=== PATIENT | male | born 1980 | race Caucasian/White ===

== ENCOUNTER 2017-08-10 10:36 | Emergency (ER) | payer OTHER ==
[~2017-08-10] VITALS: Ht 185.4 cm; Wt 81.7 kg
[~2017-08-10 10:36] MED LIST: ALBIPROI INH; DOXY100 PO; HYDACE5 PO; IBUP600 PO; IBUP800 PO; LOPE2C PO; MARIJUANA; NAPR500 PO; NAPR550 PO; OXYACE5T PO; PENVK500 PO; PROACE100 PO; PROC10 PO; PROM25 PO; RXHYDACE PO; RXNAPNA550 PO; RXPENVK250 PO; RXTRAM50 PO; SULTRIDS PO; TRAM50 PO; Veetids 500500 MG PO
[2017-08-10] MEDS ORDERED: Bactrim Ds Tab1 EACH PO (12:12)
[2017-08-10] MEDS ORDERED: IBUP800 PO (12:12)
[2017-08-10] MEDS ORDERED: CEPH500 PO (12:12)
== END 2017-08-10 12:26 | disposition home or self-care (01) ==
LOC: ER 10:36
DX: L02.11 Cutaneous abscess of neck (principal); L03.221 Cellulitis of neck; F17.210 Nicotine dependence, cigarettes, uncomplicated; Z88.5 Allergy status to narcotic agent
CPT/HCPCS: 99282

== ENCOUNTER 2017-08-14 01:59 | Emergency (ER) | payer OTHER ==
[~2017-08-14] VITALS: Ht 185.4 cm; Wt 83.9 kg
[~2017-08-14 01:59] MED LIST changes: +Bactrim Ds Tab1 EACH PO; +CEPH500 PO
[2017-08-14] MEDS ORDERED: Bactrim Ds Tab1 EACH PO (02:38)
[2017-08-14] MEDS ORDERED: CEPH500 PO (02:38)
[2017-08-14] MEDS ORDERED: IBUP800 PO (02:38)
== END 2017-08-14 02:56 | disposition home or self-care (01) ==
LOC: ER 01:59
DX: L02.11 Cutaneous abscess of neck (principal); F17.210 Nicotine dependence, cigarettes, uncomplicated; Z88.5 Allergy status to narcotic agent; Z79.1 Long term (current) use of non-steroidal anti-inflammatories (NSAID)
CPT/HCPCS: 10060; 99283

== ENCOUNTER 2017-08-14 19:52 | Observation (INO) | payer OTHER ==
[~2017-08-14] VITALS: Ht 185.4 cm; Wt 88.5 kg
[2017-08-14 22:52] LABS: BASOPHILS ABSOLUTE AUTO 0.03 K/mm3 (0.00-0.23); BASOPHILS PERCENT AUTO 0 % (0-2); EOSINOPHILS ABSOLUTE AUTO 0.12 K/mm3 (0.00-0.68); EOSINOPHILS PERCENT AUTO 2 % (0-6); Hematocrit 33.6 % (37.0-53.0); Hemoglobin 11.2 g/dL (13.5-17.5); IMMATURE GRAN ABSOLUTE AUTO 0.01 K/mm3 (0.00-0.10); IMMATURE GRAN PERCENT AUTO 0 % (0-1); LYMPHOCYTES ABSOLUTE AUTO 1.07 K/mm3 (0.84-5.20); LYMPHOCYTES PERCENT AUTO 13 % (21-46); MONOCYTES ABSOLUTE AUTO 0.56 K/mm3 (0.16-1.47); MONOCYTES PERCENT AUTO 7 % (4-13); Mean Corpuscular HGB 29.7 pg (26.0-34.0); Mean Corpuscular HGB Conc 33.3 g/dL (31.5-36.5); Mean Corpuscular Volume 89 fL (80-100); Mean Platelet Volume 10.3 fL (9.1-12.4); NEUTROPHILS ABSOLUTE AUTO 6.27 K/mm3 (1.96-9.15); NEUTROPHILS PERCENT AUTO 78 % (41-73); Platelet Count 244 K/mm3 (150-400); RDW Coefficient Variation 13.1 % (11.7-14.2); RDW Standard Deviation 42.9 fL (35.1-46.3); Red Blood Cell Count 3.77 M/mm3 (4.30-5.90); White Blood Cell Count 8.06 K/mm3 (4.00-11.30)
[2017-08-14 23:10] LABS: Alanine Aminotransfer (ALT/SGP 48 U/L (12-78); Albumin, Blood 3.5 g/dL (3.4-5.0); Albumin/Globulin Ratio 1.1 (0.8-1.8); Alk Phos 96 U/L (50-136); Anion Gap 7 mmol/L (6-16); Aspartate Aminotrans (AST/SGOT 33 U/L (12-37); Bilirubin, Total 0.5 mg/dL (0.1-1.0); Blood Urea Nitrogen 28 mg/dL (8-24); CO2, Blood 28 mmol/L (21-32); Calcium, Blood 8.7 mg/dL (8.5-10.1); Chloride, Blood 108 mmol/L (98-108); Creatinine, Blood 0.97 mg/dL (0.60-1.20); Ethanol (Alcohol), Blood, Med <3 mg/dL; Globulin, Blood 3.2 g/dL (2.2-4.0); Glomerular Filtration Rate >60 (60-); Glucose, Blood 112 mg/dL (70-99); Potassium, Blood 4.3 mmol/L (3.5-5.5); Sodium, Blood 143 mmol/L (136-145); Total Protein, Blood 6.7 g/dL (6.4-8.2)
[2017-08-15 04:55] LABS: U Amphetamine Screen DETECTED; U Barbituate Screen Not Detected; U Benzodiazapine Screen DETECTED; U Buprenorphine Screen Not Detected; U Cannabinoids Screen DETECTED; U Cocaine Screen Not Detected; U Methadone Screen Not Detected; U Methamphetamine Screen DETECTED; U Opiates Screen Not Detected; U Oxycodone Screen Not Detected; U Phencyclidine Screen Not Detected; U Propoxyphene Screen Not Detected
== END 2017-08-15 04:46 | disposition home or self-care (01) ==
LOC: ER 19:52 → EOR 19:53
PROVIDERS: Emergency Medicine
DX: F32.9 Major depressive disorder, single episode, unspecified (principal); F19.11 Other psychoactive substance abuse, in remission; G89.29 Other chronic pain; F90.9 Attention-deficit hyperactivity disorder, unspecified type; F17.210 Nicotine dependence, cigarettes, uncomplicated; R48.0 Dyslexia and alexia; Z88.5 Allergy status to narcotic agent; Z59.0 Homelessness
CPT/HCPCS: 36415; 80053; 85025; 96361; 96365; 99285; G0378; G0480; J3411; J3475; J7042; J7120

== ENCOUNTER 2017-12-10 12:48 | Emergency (ER) | payer OTHER ==
[~2017-12-10] VITALS: Ht 172.7 cm; Wt 88.5 kg
[2017-12-10] MEDS ORDERED: Bactrim Ds Tab1 EACH PO (13:30)
[2017-12-10] MEDS ORDERED: CEPH500 PO (13:30)
[2017-12-10] MEDS ORDERED: NAPR550 PO (13:30)
== END 2017-12-10 13:45 | disposition home or self-care (01) ==
LOC: ER 12:48
DX: L03.011 Cellulitis of right finger (principal); M54.9 Dorsalgia, unspecified; Z88.5 Allergy status to narcotic agent; F17.210 Nicotine dependence, cigarettes, uncomplicated
CPT/HCPCS: 96372; 99283; J1885

== ENCOUNTER 2019-01-18 15:49 | Emergency (ER) | payer OTHER ==
[~2019-01-18] VITALS: Ht 185.4 cm; Wt 79.4 kg
[~2019-01-18 15:49] MED LIST changes: +KETO10 PO; +LIDO700A20 TOP
[2019-01-18] MEDS ORDERED: Robaxin-750750 MG PO (17:31)
[2019-01-18] MEDS ORDERED: LIDO700A20 TOP (17:34)
== END 2019-01-18 17:40 | disposition home or self-care (01) ==
LOC: ER 15:49
DX: M54.5 Low back pain (principal); G89.29 Other chronic pain; Z88.8 Allergy status to other drugs, medicaments and biological substances; Z88.5 Allergy status to narcotic agent; F17.210 Nicotine dependence, cigarettes, uncomplicated
CPT/HCPCS: 72100; 72220; 99283-25; J1100; J1885

== ENCOUNTER 2019-07-03 16:16 | Emergency (ER) | payer OTHER ==
[~2019-07-03] VITALS: Ht 185.4 cm; Wt 81.7 kg
[~2019-07-03 16:16] MED LIST changes: +Robaxin-750750 MG PO
[2019-07-03] MEDS ORDERED: Augmentin 875-1 EACH PO (16:25)
== END 2019-07-03 16:31 | disposition home or self-care (01) ==
LOC: ER 16:16
DX: K04.7 Periapical abscess without sinus (principal); K03.81 Cracked tooth; F90.9 Attention-deficit hyperactivity disorder, unspecified type; F17.210 Nicotine dependence, cigarettes, uncomplicated; Z88.5 Allergy status to narcotic agent; Z88.8 Allergy status to other drugs, medicaments and biological substances
CPT/HCPCS: 99282

== ENCOUNTER 2020-09-12 09:33 | Emergency (ER) | payer OTHER ==
[~2020-09-12] VITALS: Ht 182.9 cm; Wt 81.7 kg
[~2020-09-12 09:33] MED LIST changes: +Augmentin 875-1 EACH PO
[2020-09-12] MEDS ORDERED: Bactrim Ds Tab1 EACH PO (10:13)
[2020-09-12] MEDS ORDERED: Ultram50 MG PO (10:13)
[2020-09-12] MEDS ORDERED: Cephalexin500 M1 PO (10:13)
== END 2020-09-12 10:26 | disposition home or self-care (01) ==
LOC: ER 09:33
DX: K13.0 Diseases of lips (principal); F17.210 Nicotine dependence, cigarettes, uncomplicated; Z59.0 Homelessness; Z88.5 Allergy status to narcotic agent; Z88.8 Allergy status to other drugs, medicaments and biological substances
CPT/HCPCS: 99283; A9270

== ENCOUNTER 2020-11-30 14:30 | Emergency (ER) | payer OTHER ==
[~2020-11-30] VITALS: Ht 185.4 cm; Wt 81.7 kg
[~2020-11-30 14:30] MED LIST changes: +Cephalexin500 M1 PO; +Ultram50 MG PO
[2020-11-30] MEDS ORDERED: Vibramycin100 MG PO (14:53)
[2020-12-02 01:09] LABS: CHLAMYDIA TRACHOMATIS, NAA Negative (Negative)
== END 2020-11-30 15:19 | disposition home or self-care (01) ==
LOC: ER 14:30
PROVIDERS: Physician Assistant
DX: Z11.3 Encounter for screening for infections with a predominantly sexual mode of transmission (principal); R36.9 Urethral discharge, unspecified; N48.89 Other specified disorders of penis; F17.210 Nicotine dependence, cigarettes, uncomplicated
CPT/HCPCS: 87491; 87591; 96372; 99283; A9270; J0696